=== PATIENT | female | born 1995 | race Caucasian/White ===

== ENCOUNTER 2017-09-25 12:53 | Outpatient (CLI) ==
[2015-09-19 09:30] VITALS: BMI 37.2
== END 2017-09-25 12:54 | disposition home or self-care (01) ==
LOC: LAB 12:53
PROVIDERS: ATTEND Advanced Practice Midwife
DX: R03.0 Elevated blood-pressure reading, without diagnosis of hypertension (principal)
CPT/HCPCS: 36415; 81050; 82575

== ENCOUNTER 2018-05-22 15:31 | Emergency (ER) | payer OTHER ==
[2018-05-22 15:35] VITALS: BP 121/78; TEMP 98.5; BMI 46.9
[2018-05-22] MEDS ORDERED: MOTRIN PO STA (16:00)
--- NOTE | 2018-05-22 16:01 | ED.PDOC ---
General ED Provider: Dr. JYOTI MIRANDA Chief Complaint: Ankle Pain/Injury Stated Complaint: Right ankle swelling since yesterday. No sure if she over did it at her new place of work but declines any obvious injury Time Seen by Physician: 15:59 Mode of Arrival: Walk-In Information Source: Patient Primary Care Provider: RORY WARREN Nursing and Triage Documentation Reviewed and Agree: Yes Does patient meet sepsis criteria?: No System Inflammatory Response Syndrome: Not Applicable Sepsis Protocol: For patient's 13 years and over: Temp is 96.8 and below OR 101 and greater Pulse >90 BPM Resp >20/minute Acutely Altered Mental Status Are patient's symptoms suggestive of a new infection, such as: -Pneumonia -Skin, Soft Tissue -Endocarditis -UTI -Bone, Joint Infection -Implantable Device -Acute Abdominal Infection -Wound Infection -Meningitis -Blood Stream Catheter Infection -Unknown Musculoskeletal Complaint Exam - Ankle/Foot Complaint/Exam Location of Injury: Reports: Right Mechanism of Injury: Reports: No known trauma Onset/Duration: 2 days Symptoms Are: Reports: Still present Initial Severity: Mild Current Severity: Moderate Location: Reports: Diffuse Character: Reports: Aching, Throbbing Alleviating: Reports: Rest Aggravating: Reports: Movement, Weight bearing Able to Bear Weight: Yes Associated Signs and Symptoms: Reports: Swelling Gout Risk Factors: Reports: None Lower Extremity Findings: Present: Swelling, Tenderness, Limited range of motion Tenderness: Present: Lateral malleolus Limited Range of Motion: Present: Dorsiflexion, Plantarflexion Ankle/Foot Picture: 1 - tenderness and swelling Differential Diagnosis: Sprain, Strain Review of Systems - Review Of Systems Constitutional: Reports: No symptoms Eyes: Reports: No symptoms Ears, Nose, Mouth, Throat: Reports: No symptoms Respiratory: Reports: No symptoms Cardiac: Reports: No symptoms GI: Reports: No symptoms : Reports: No symptoms Musculoskeletal: Reports: Joint pain, Joint swelling Neurological: Reports: Anxiety All Other Systems: Reviewed and Negative Past Medical History - Past Medical History Previously Healthy: Yes Endocrine: Reports: None Cardiovascular: Reports: None Respiratory: Reports: None Hematological: Reports: None Gastrointestinal: Reports: None Genitourinary: Reports: None Neuro/Psych: Reports: None Musculoskeletal: Reports: None Cancer: Reports: None Last Menstrual Period: february--had child in december Other Pertinent Past Medical History: Obesity - Surgical History General Surgical History: Reports: - Family History Family History: Reports: Unknown - Social History Smoking Status: Current some day smoker, Light tobacco smoker Hx Substance Use: No Alcohol Screening: None Physical Exam - Physical Exam Appearance: Well-appearing, Obese Pain Distress: Moderate Neck: Supple Respiratory: Airway patent, Breath sounds clear, Breath sounds equal, Respirations nonlabored Cardiovascular: RRR, Pulses normal, No murmur GI/: Soft, Nontender, No masses, Bowel sounds normal, No Organomegaly Musculoskeletal: Limited ROM (Right ankle joint ), Edema (right ankle ) Skin: Warm, Dry, Normal color Neurological: Sensation intact, Motor intact, Reflexes intact, Cranial nerves intact, Alert, Oriented Psychiatric: Anxious Interpretation - Radiology Interpretation Radiology Interpretation By: ED Physician Radiology Results: Negative Exam Interpreted: Other (Ankle x ray ) Critical Care Note - Critical Care Note Total Time (mins): 0 Course - Course Vital Signs: Temp Pulse Resp BP Pulse Ox 05/22/18 15:31 98.5 F 97 H 20 121/78 99 Departure - Departure Time of Disposition: 16:30 Disposition: HOME SELF-CARE Discharge Problem: Moderate right ankle sprain Qualifiers: Encounter type: initial encounter Qualified Code(s): S93.401A - Sprain of unspecified ligament of right ankle, initial encounter Instructions: Ankle Sprain (ED) Condition: Stable Pt referred to PMD for follow-up: Yes IPMP verified?: No Additional Instructions: Take Medications as prescribed Follow up with PCP in 3 day Keep foot elevated Use darlene wrap as needed for pain Prescriptions: Ibuprofen [Motrin] 600 mg PO Q6H PRN #30 tablet PRN Reason: Analgesia Tramadol HCl [Ultram] 50 mg PO Q6H PRN #10 tablet PRN Reason: Severe Pain Allergies/Adverse Reactions: Allergies No Known Drug Allergies Adverse Reaction (Verified 05/22/18 15:36) Home Medications: Ambulatory Orders Ibuprofen [Motrin] 600 mg PO Q6H PRN #30 tablet 05/22/18 Tramadol HCl [Ultram] 50 mg PO Q6H PRN #10 tablet 05/22/18 Disposition Discussed With: Patient
--- NOTE | 2018-05-22 16:17 | DI ---
EXAM: RIGHT ANKLE THREE VIEWS HISTORY: Ankle pain FINDINGS: Bone and joint structures appear normal. No fracture or joint dislocation. There is no joint effusion. Bone density is unremarkable. IMPRESSION: Bone and joint structures are within normal limits.
== END 2018-05-22 16:30 | disposition home or self-care (01) ==
LOC: ED 15:31
DX: S93.401A Sprain of unspecified ligament of right ankle, initial encounter (principal); X50.1XXA Overexertion from prolonged static or awkward postures, initial encounter; F17.210 Nicotine dependence, cigarettes, uncomplicated
CPT/HCPCS: 99282

== ENCOUNTER 2018-11-03 13:00 | Outpatient (RCR) ==
--- NOTE | 2018-10-20 10:49 | RS.OPPTEV2 ---
Date of Note: 10/20/18 Visit #: 1 Number of visits approved by Insurance: pending approval Date of Evaluation: 10/20/18 Payer Source: Medicaid Surgery Performed?: No Treatment Diagnosis: R ankle pain, tendonitis r ankle, sprain of anterior talofibular ligament History of Condition/Mechanism of Injury:: Pain began in 05/2018. No definite injury noted, just began hurting and swelling. Has been seeing blueprinting machine operator due to pain. 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 Functional Limitations: Standing, Squatting, Ambulation, Community Access/ Integration Current Subjective/complaints:: pt states that when she gets off work her foot hurts so bad she is unable to perform normal household activities. States the swelling in R lat ankle never goes away. Reports she did buy some new [employer] shoes and they help her make it through the work day. States MD gave her a lace up brace but she doesn't use it often because she doesn't think it helps. Treatment Side (optional): Right *Precautions: n/a Medical History Medical History: Unremarkable Surgical History: (x2) Smoking Status: Current some day smoker Hx Home Medications: ibuprofen Patient's Goals: decrease pain and swelling in R ankle, so she can play with her kids and do normal housework after she gets off work Pain Assessment - Pain Description Pain Location: R ankle Pain Description: Sharp, Aching Current Pain Intensity: 4 Worst Pain Intensity: 9 Functional Outcome Measure LE Functional Scale: 47 - G Codes & Severity Modifier G Codes & Modifier: n/a Source of G Code score: n/a Observation - Observation Inspection: area of edema posterior lateral malleolus Posture: Forward Head, Rounded Shoulders Handedness: Right Girth Measurement Lower: RLE: ankle 29.5cm, forefoot 25cm. LLE: ankle 26cm, forefoot 24.5cm Gait - Gait Pattern General Gait Pattern Observation: Antalgic Gait Gait Comments: pt amb with antalgic gait pattern without AD. pt with B foot pronation R worse than L. General Range of Motion: BUE WFL's. BLE hip and knee and L ankle WFL's Muscle Strength: BUE 5/5. BLE hip/knee and L ankle 5/5 Ankle ROM: Left WFL's Ankle Muscle Strength: Left WFL's - Right Ankle ROM Right DF with Knee extension: -5 Right Plantarflexion: 28 Right Eversion: 11 Right Inversion: 8 Right Ankle/Foot ROM Limitations: Soft Tissue Tightness, Muscle Weakness, Pain - Right Ankle Strength Right Dorsiflexion: 4- Good- Right Plantarflexion: 4- Good- Right Eversion: 4- Good- Right Inversion: 4- Good- - Special Tests Talar Tilt Test: Negative Right Palpation Palpation Findings: Tenderness Comments:: pt with point tenderness posterior lat malleolus as well as post to medial malleolus Sensation - Sensation Right Upper Extremity: Intact/Normal Left Upper Extremity: Intact/Normal Right Lower Extremity: Intact/Normal Left Lower Extremity: Intact/Normal Balance - Sitting Balance Static Sitting Balance: Normal Dynamic Sitting Balance: Normal - Standing Balance Static Standing Balance: Normal Dynamic Standing Balance: Normal - Treatment Modality: Ultrasound Parameters/Method Applied: 1.5w/cm2 x 7 mins Treatment Area: R lat ankle Patient Position: Sitting - Heat/Cryotherapy Treatment: Cryotherapy Comments:: R ankle Interventions - Exercise/Activities/Manual Therapy Exercises/Activities: pt received gentle heel cord stretch RLE, isometric DF, PF , IV, EV. Manual Therapy: pt received retrograde massage R foot/ankle, educated pt on self massage technique to decrease swelling. HOME EXERCISE PROGRAM: pt given written HEP including: towel stretch, isometric DF, PF, IV, EV. Instructed pt to perform towel stretches in morning before getting out of bed, also instructed on the importance of ice to decrease pain and edema. pt verbalized understanding - Charges Timed Code Treatment Minutes: 51 Total Treatment Time: 68 Procedures billed for this date of service:: eval low, ultrasound, ex EVALUATION COMPLEXITY LEVEL EVALUATION COMPLEXITY LEVEL: HISTORY: Low (R ankle pain), EXAM OF BODY SYSTEMS: Medium (edema, pain, strength, gait difficulty), CLINICAL PRESENTATION: Low, CLINICAL DECISION MAKING: Low Assessment Assessment: pt presents with pain, edema, decreased strength and ROM R ankle. pt with antalgic gait due to R ankle pain and heel cord tightness. Feel pt would benefit from skilled PT for therex for stretching, strengthening, modalities, massage to decrease edema and pain. Patient Education: Home Exercise Program, Education of Plan of Care Rehab Potential: Good Short Term Goals Goal #1: pt independent with initial HEP Goal to be met by: 11/12/18 Goal #2: Improve R ankle ROM WFL's Goal to be met by: 11/12/18 Goal #3: Improve R ankle strength 4 to 4+/5 Goal to be met by: 11/12/18 Goal #4: Decrease edema R ankle Goal to be met by: 11/12/18 Detention Goals Goal #1: pt amb with decreased antalgic gait pattern Goal to be met by: 12/03/18 Goal #2: pt report pain < 4/10 R ankle Goal to be met by: 12/03/18 Goal #3: pt report able to work full shift without increase in pain R ankle Goal to be met by: 12/03/18 Plan - Treatment to be Provided Procedures: Therapeutic Exercises, Manual Therapy, Massage, Patient Education Modalities: Electrical Stimulation, Ultrasound/Phonophoresis, Cryotherapy, Hot Packs Other:: feel pt may benefit from phonophoresis - Treatment Plan Frequency: 2-3x a week Duration: 6 weeks Dates of Snack Stewardess Goals: 12/03/18 Expiration date of current Insurance Approval:: pending - Treatment Code (1) Right ankle pain Code(s): M25.571 - PAIN IN RIGHT ANKLE AND JOINTS OF RIGHT FOOT Qualifiers: Chronicity: chronic Qualified Code(s): M25.571 - Pain in right ankle and joints of right foot; G89.29 - Other chronic pain (2) Effusion of ankle joint, right Code(s): M25.471 - EFFUSION, RIGHT ANKLE (3) Muscle tightness Code(s): M62.89 - OTHER SPECIFIED DISORDERS OF MUSCLE (4) Sprain of anterior talofibular ligament of right ankle Code(s): S93.491A - SPRAIN OF OTHER LIGAMENT OF RIGHT ANKLE, INITIAL ENCOUNTER
--- NOTE | 2018-10-26 16:23 | RS.OPPTDN ---
Subjective Date of Note: 10/26/18 Visit #: 2 Number of visits approved by Insurance: pending, requested 8 Date of Evaluation: 10/20/18 Payer Source: Medicaid Treatment Diagnosis: R ankle pain, tendonitis r ankle, sprain of anterior talofibular ligament Current Subjective/complaints:: Patient says she had to work today and has been limping throughout her shift at work. She says even her L ankle is affected as it is painful and swollen too. She says she can not turn her ankle "to normal" or neutral position. She says she has been trying to work on exercises at home and wear her tennis shoes. States she is going to try to fill her old prescription of anti-inflammatory medication to help with her symptoms. *Precautions: n/a - Treatment Modality: Ultrasound Parameters/Method Applied: PHONOPHORESIS using hydrocortisone 2.5% continuous @ 1.5 w/cm2 x 6 mins, then Pulsed 20% at 0.6 w/cm2 x 5 mins 3.3 mHz to the R lateral malleoli - Heat/Cryotherapy Treatment: Cryotherapy (cold pack wrapped around the R ankle/foot x 15 mins after therex) Interventions - Exercise/Activities/Manual Therapy Exercises/Activities: pt received gentle heel cord stretch RLE, HS stretching, isometric DF, PF, IV, EV. Total minutes of Exercise: 16 Manual Therapy: na HOME EXERCISE PROGRAM: pt given written HEP including: towel stretch, isometric DF, PF, IV, EV. Instructed pt to perform towel stretches in morning before getting out of bed, also instructed on the importance of ice to decrease pain and edema. pt verbalized understanding - Charges Timed Code Treatment Minutes: 28 Total Treatment Time: 43 Procedures billed for this date of service:: cp, u/s, ex Assessment: Patient demo moderate swelling to the R ankle as well as decreased ROM limiting her from IV and actually unable to obtain just neutral position. She amb in dept with decreased stance on the R LE, limping, and holding onto the gloria railing. We modified treatment to include hydrocortisone to u/s to further decrease her pain. She admits improved pain and mobility following treatment including cryotherapy. Patient Education: Education of diagnosis, Body/Joint mechanics, Home Exercise Program, Education of Plan of Care Patient demonstrates compliance with HEP?: Yes Short Term Goals Goal #1: pt independent with initial HEP Goal to be met by: 11/12/18 Progress towards Goal:: Progressing Goal #2: Improve R ankle ROM WFL's Goal to be met by: 11/12/18 Goal #3: Improve R ankle strength 4 to 4+/5 Goal to be met by: 11/12/18 Goal #4: Decrease edema R ankle Goal to be met by: 11/12/18 Automatic Oven Operator Goals Goal #1: pt amb with decreased antalgic gait pattern Goal to be met by: 12/03/18 Goal #2: pt report pain < 4/10 R ankle Goal to be met by: 12/03/18 Goal #3: pt report able to work full shift without increase in pain R ankle Goal to be met by: 12/03/18 Plan Dates of Automatic Oven Operator Goals: 12/03/18 Expiration date of current Insurance Approval:: 12/03/18 PLAN: Patient to continue with phonophoresis and cryotherapy and therex to increase ROM.
--- NOTE | 2018-10-28 16:12 | RS.CXNS ---
Date of scheduled appointment: 10/28/18 Type: No Show
--- NOTE | 2018-11-08 16:11 | RS.CXNS ---
Date of scheduled appointment: 11/08/18 Type: No Show Reason for Cancel/NS: patient calls 30 mins later
== END 2018-11-09 23:59 ==
PROVIDERS: ATTEND Podiatrist
DX: S93.491D Sprain of other ligament of right ankle, subsequent encounter (principal); M25.571 Pain in right ankle and joints of right foot; G89.29 Other chronic pain; M25.471 Effusion, right ankle; M62.89 Other specified disorders of muscle

== ENCOUNTER 2018-12-03 11:00 | Outpatient (RCR) ==
--- NOTE | 2018-11-11 14:08 | RS.CXNS ---
Date of scheduled appointment: 11/11/18 Type: Cancel Reason for Cancel/NS: pt had to cancel and reshedule for next week. pt states her dtr is sick today and she is going to take her to MD and they could only see her at 3. Rescheduled for 11/16/18 at 3pm.
--- NOTE | 2018-11-11 14:26 | RS.CXNS ---
Date of scheduled appointment: 11/11/18 Type: Rescheduled Reason for Cancel/NS: Taking daughter to MD.
--- NOTE | 2018-11-16 16:40 | RS.OPPTDN ---
Subjective Date of Note: 11/16/18 Visit #: 4 Number of visits approved by Insurance: 8 Date of Evaluation: 10/20/18 Payer Source: Medicaid Treatment Diagnosis: R ankle pain, tendonitis r ankle, sprain of anterior talofibular ligament Current Subjective/complaints:: Patient states her ankle pain has been bad the past few days. Reports increased swelling and difficulty with ambulation making her call into work today and yesterday. States her L ankle is now bothering her more than R. *Precautions: n/a - Treatment Modality: Ultrasound Parameters/Method Applied: PHONOPHORESIS using 2.5 % hydrocortisone continuous @ 1.5 w/cm2 x 5 mins then pulsed 20% 0.6 w/cm2 x 6 mins to the R lateral malleoli aspect Patient Position: Supine - Heat/Cryotherapy Treatment: Cryotherapy (15 mins to the R ankle following therex in supine) Interventions - Exercise/Activities/Manual Therapy Exercises/Activities: Patient receives PROM all directions of the R ankle followed by manual isometrics 2x5 all directions, red tband all directions 2x10 reps. Ended with wobble board DF/PF x 15 slowly after ice. Discussion of therex, diagnosis, anatomy, and HEP. Total minutes of Exercise: 22 Manual Therapy: na HOME EXERCISE PROGRAM: pt given written HEP including: towel stretch, isometric DF, PF, IV, EV. Instructed pt to perform towel stretches in morning before getting out of bed, also instructed on the importance of ice to decrease pain and edema. pt verbalized understanding - Charges Timed Code Treatment Minutes: 33 Total Treatment Time: 48 Procedures billed for this date of service:: cp, u/s, ex Assessment: Patient tolerates increased PROM today and demo less swelling, but patient had taken off 2 days because of her pain from over the weekend. Jennifer now is having more pain to the L foot than R. She experiences relief following session today and attentive to HEP, cryotherapy, and elevation. Patient Education: Education of diagnosis, Body/Joint mechanics, Home Exercise Program Patient demonstrates compliance with HEP?: Yes Short Term Goals Goal #1: pt independent with initial HEP Goal to be met by: 11/12/18 Progress towards Goal:: Progressing Goal #2: Improve R ankle ROM WFL's Goal to be met by: 11/12/18 Progress towards Goal:: Progressing Goal #3: Improve R ankle strength 4 to 4+/5 Goal to be met by: 11/12/18 Progress towards Goal:: Progressing Goal #4: Decrease edema R ankle Goal to be met by: 11/12/18 Progress towards Goal:: Progressing Manuscript Editor Goals Goal #1: pt amb with decreased antalgic gait pattern Goal to be met by: 12/03/18 Goal #2: pt report pain < 4/10 R ankle Goal to be met by: 12/03/18 Goal #3: pt report able to work full shift without increase in pain R ankle Goal to be met by: 12/03/18 Plan Dates of Manuscript Editor Goals: 12/03/18 Expiration date of current Insurance Approval:: 12/03/18 PLAN: Patient to continue BIW for phonophoresis and ROM/cryo to improve ROM and strength/pain.
--- NOTE | 2018-11-19 16:36 | RS.OPPTDN ---
Subjective Date of Note: 11/19/18 Visit #: 5 Number of visits approved by Insurance: pending, requested 8 Date of Evaluation: 10/20/18 Payer Source: Medicaid Treatment Diagnosis: R ankle pain, tendonitis r ankle, sprain of anterior talofibular ligament Current Subjective/complaints:: Patient says since she has had 4 days off from work to rest and taking ibuprofen prescription, she has had less pain and notices improved mobility. She says she had to work an earlier and longer shift today, but did not have the pain or swelling she anticipated. She appears positive about her progress. 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 *Precautions: n/a - Treatment Modality: Ultrasound Parameters/Method Applied: PHONOPHORESIS using 2.5 % hydrocortisone to the R lateral malleoli and just posterior/inferior continuous @ 1.5 w/cm2 x 5 mins, then pulsed @ 20% @ 0.6 w/cm2 x 5 mins Patient Position: Supine Interventions - Exercise/Activities/Manual Therapy Exercises/Activities: Patient receives PROM all directions of the R ankle followed by manual isometrics 2x5 all directions, progressed to green tband all directions 2x10 reps. Ended with wobble board DF/PF x 15 and then assisted slightly with IV/EV. Discussion of therex, diagnosis, anatomy, and HEP. Total minutes of Exercise: 17 Manual Therapy: na HOME EXERCISE PROGRAM: pt given written HEP including: towel stretch, isometric DF, PF, IV, EV. Instructed pt to perform towel stretches in morning before getting out of bed, also instructed on the importance of ice to decrease pain and edema. pt verbalized understanding - Charges Timed Code Treatment Minutes: 30 Total Treatment Time: 35 Procedures billed for this date of service:: u/s, ex Assessment: Patient presents with nearly equal stance time on the R LE with ambulation as well as very little pain after working a longer shift and first shift in 4 days. She demo improved IV to 12 degrees, DF now to neutral. Improved tolerance to isometrics and theraband today as well. Patient Education: Education of diagnosis, Home Exercise Program, Education of Plan of Care Patient demonstrates compliance with HEP?: Yes Short Term Goals Goal #1: pt independent with initial HEP Goal to be met by: 11/12/18 Progress towards Goal:: Progressing Goal #2: Improve R ankle ROM WFL's Goal to be met by: 11/12/18 Progress towards Goal:: Progressing Goal #3: Improve R ankle strength 4 to 4+/5 Goal to be met by: 11/12/18 Progress towards Goal:: Progressing Goal #4: Decrease edema R ankle Goal to be met by: 11/12/18 Progress towards Goal:: Partially Met (ongoing) Care Home Goals Goal #1: pt amb with decreased antalgic gait pattern Goal to be met by: 12/03/18 Goal #2: pt report pain < 4/10 R ankle Goal to be met by: 12/03/18 Goal #3: pt report able to work full shift without increase in pain R ankle Goal to be met by: 12/03/18 Plan Dates of Ad Operations Coordinator Goals: 12/03/18 Expiration date of current Insurance Approval:: 12/03/18 PLAN: Continue BIW x 2 more weeks to maintain little to no swelling to the R ankle and improve strength and ROM.
--- NOTE | 2018-11-23 16:23 | RS.OPPTDN ---
Subjective Date of Note: 11/23/18 Visit #: 6 Number of visits approved by Insurance: Requested 8 Date of Evaluation: 10/20/18 Payer Source: Medicaid Treatment Diagnosis: R ankle pain, tendonitis r ankle, sprain of anterior talofibular ligament Current Subjective/complaints:: Patient states she worked more today and went in earlier causing increased pain. She says her swelling seems to be controlled , but says she can't move her foot very much. States both feet really are bothering her. *Precautions: n/a - Treatment Modality: Electrical Stim Unattended Parameters/Method Applied: hivolt 4 small pads surrounding the R ankle x 20 mins prior to therex @ 155-180 pk volts Patient Position: Supine - Heat/Cryotherapy Treatment: Cryotherapy Comments:: around the R ankle with estim Interventions - Exercise/Activities/Manual Therapy Exercises/Activities: Patient receives PROM all directions of the R ankle cycling with isometrics and contract/relax to improve ROM. Focused on IV as it is very restricted. Continued with more isometrics all directions. Ended with AROM all directions. Encouraged ice and elevation, AROM tonight and tomorrow as she is off work. Total minutes of Exercise: 23 Manual Therapy: na HOME EXERCISE PROGRAM: pt given written HEP including: towel stretch, isometric DF, PF, IV, EV. Instructed pt to perform towel stretches in morning before getting out of bed, also instructed on the importance of ice to decrease pain and edema. pt verbalized understanding - Charges Timed Code Treatment Minutes: 23 Total Treatment Time: 43 Procedures billed for this date of service:: cp, estim (un), ex2 Assessment: Patient amb to dept with antalgic gait very limited PF and IV. ROM improved with contract/relax and estim. She appeared to jammie modalities well. She amb out of dept better, but decreased stride and stance time bilaterally. Patient Education: Home Exercise Program, Home Safety, Education of Plan of Care Patient demonstrates compliance with HEP?: Yes Short Term Goals Goal #1: pt independent with initial HEP Goal to be met by: 11/12/18 Progress towards Goal:: Progressing Goal #2: Improve R ankle ROM WFL's Goal to be met by: 11/12/18 Progress towards Goal:: Progressing Goal #3: Improve R ankle strength 4 to 4+/5 Goal to be met by: 11/12/18 Progress towards Goal:: Progressing Goal #4: Decrease edema R ankle Goal to be met by: 11/12/18 Progress towards Goal:: Partially Met (ongoing) School Transportation Director Goals Goal #1: pt amb with decreased antalgic gait pattern Goal to be met by: 12/03/18 Goal #2: pt report pain < 4/10 R ankle Goal to be met by: 12/03/18 Goal #3: pt report able to work full shift without increase in pain R ankle Goal to be met by: 12/03/18 Plan Dates of School Transportation Director Goals: 12/03/18 Expiration date of current Insurance Approval:: 12/03/18 PLAN: Continue x 2 more sessions.
--- NOTE | 2018-11-26 16:42 | RS.OPPTDN ---
Subjective Date of Note: 11/26/18 Visit #: 7 Number of visits approved by Insurance: 8 requested Date of Evaluation: 10/20/18 Payer Source: Medicaid Treatment Diagnosis: R ankle pain, tendonitis r ankle, sprain of anterior talofibular ligament Current Subjective/complaints:: Patient says she is wanting to get an order for therapy to work on the L ankle now. She says it seems to be worse than the R at this point. She says the R still hurts, but is now tolerable. She says she will return to her MD next week. *Precautions: n/a Pain Assessment - Pain Description Pain Location: Bilateral ankles along the medial and lateral aspect (L >R today) - Treatment Modality: Electrical Stim Unattended Parameters/Method Applied: hivolt 4 small pads surrounding the R ankle @ 165- 180 pk volts x 20 mins PRIOR to therex Patient Position: Supine - Heat/Cryotherapy Treatment: Cryotherapy (wrapped around the R ankle with estim) Interventions - Exercise/Activities/Manual Therapy Exercises/Activities: Patient receives PROM all directions of the R ankle cycling with isometrics and contract/relax to improve ROM. Focused on IV as it is very restricted and was able to maintain neutral position at rest. Continued with more isometrics all directions. Red tband for DF, PF, and IV 2x10. Ended with AROM all directions. Encouraged ice and elevation, AROM tonight and through the weekend. Total minutes of Exercise: 24 Manual Therapy: na HOME EXERCISE PROGRAM: pt given written HEP including: towel stretch, isometric DF, PF, IV, EV. Instructed pt to perform towel stretches in morning before getting out of bed, also instructed on the importance of ice to decrease pain and edema. pt verbalized understanding - Objective Findings Observations,measurements,etc.: IV actively is 13 degrees at end of session. She is able to maintain resting neutral position now as all other treatments she rested in [employer]. Passively, I am able to measure 15 degrees before pain is present. - Charges Timed Code Treatment Minutes: 24 Total Treatment Time: 44 Procedures billed for this date of service:: cp,estim (un), ex2 Assessment: Patient amb into dept with antalgic gait everting the R ankle, through modalities and therex, she is able to maintain resting ankle neutral position and noticably less antalgic gait. Increased heel to toe maintaining less eversion. Increased IV noted compared to eval. 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
--- NOTE | 2018-12-01 10:33 | RS.OPPTDN ---
Subjective Date of Note: 12/01/18 Visit #: 8 Number of visits approved by Insurance: Requested 18 Date of Evaluation: 10/20/18 Payer Source: Medicaid Treatment Diagnosis: R ankle pain, tendonitis r ankle, sprain of anterior talofibular ligament Current Subjective/complaints:: Patient says that she has stiffness and soreness to both ankles. Reports it is difficult for her to walk around first thing in the morning, but as she walks on it, it improves. She says therapy has helped her more in the past few visits as she is now able to turn her foot in and has less swelling. She says she is now having more issues with the L foot she feels due to "babying" the R foot. *Precautions: n/a - Treatment Modality: Electrical Stim Unattended Parameters/Method Applied: hivolt 4 small pads @ 165-185 pk volts x 20 mins after therex surrounding the R ankle Patient Position: Supine - Heat/Cryotherapy Treatment: Cryotherapy Interventions - Exercise/Activities/Manual Therapy Exercises/Activities: Patient receives PROM all directions of the R ankle cycling with isometrics and contract/relax to improve ROM. Focused on IV as it remains restricted, but is improving with mobility. She is now able to maintain neutral position while resting supine and also demo it in standing. Continued with joint mobs I-III at the talofibular joint for increasing range as well. AROM all directions. Continued with more isometrics all directions. Red tband for DF, PF, and IV 2x10. Patient stands at railing for instruction and performance of heel strike and toe off multiple reps to establish better gait pattern. Short range minisquats also at the railing x 5 to gain stabilization for the ankles. Encouraged ice and elevation. Total minutes of Exercise: 24 Manual Therapy: na HOME EXERCISE PROGRAM: pt given written HEP including: towel stretch, isometric DF, PF, IV, EV. Instructed pt to perform towel stretches in morning before getting out of bed, also instructed on the importance of ice to decrease pain and edema. pt verbalized understanding - Charges Timed Code Treatment Minutes: 24 Total Treatment Time: 44 Procedures billed for this date of service:: cp, ex2, estim (un) Assessment: Patient demo neutral position to the ankle with resting supine and also jammie less pain with active IV following modalities and manual mobilization techniques. She also demo improved strengthening to IV as well 4/5. She demo improved ease with heel strike and has correct demo during amb out of the dept. Very minimal swelling observed. Patient Education: Education of diagnosis, Home Exercise Program Patient demonstrates compliance with HEP?: Yes Short Term Goals Goal #1: pt independent with initial HEP Goal to be met by: 11/12/18 Progress towards Goal:: Met Goal #2: Improve R ankle ROM WFL's Goal to be met by: 11/12/18 Progress towards Goal:: Progressing Goal #3: Improve R ankle strength 4 to 4+/5 Goal to be met by: 11/12/18 Progress towards Goal:: Met Goal #4: Decrease edema R ankle Goal to be met by: 11/12/18 Progress towards Goal:: Partially Met (ongoing) Alf Goals Goal #1: pt amb with decreased antalgic gait pattern Goal to be met by: 12/03/18 Progress towards goal: Progressing Goal #2: pt report pain < 4/10 R ankle Goal to be met by: 12/03/18 Progress towards goal: Progressing Goal #3: pt report able to work full shift without increase in pain R ankle Goal to be met by: 12/03/18 Progress towards goal: Progressing Plan Dates of Lav Crewman Goals: 12/03/18 Expiration date of current Insurance Approval:: 12/03/18 PLAN: continue x 1 session
--- NOTE | 2018-12-03 15:32 | RS.OPPTDN ---
Subjective Date of Note: 12/03/18 Visit #: 9 Number of visits approved by Insurance: pending Date of Evaluation: 10/20/18 Payer Source: Medicaid Treatment Diagnosis: R ankle pain, tendonitis r ankle, sprain of anterior talofibular ligament Current Subjective/complaints:: Patient says that therapy has helped her tremendously for the R foot admitting that she is able to walk "correctly" on it and beginning to walk "wrong" on the L with increased pain. 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 She reports less swelling and more mobility. *Precautions: n/a - Treatment Modality: Electrical Stim Unattended Parameters/Method Applied: hivolt 4 small pads cross current to the R ankle @ 155-165 pk volts x 20 mins prior to therex/measurements. Patient Position: Supine - Heat/Cryotherapy Treatment: Cryotherapy Comments:: concurrent with estim Interventions - Exercise/Activities/Manual Therapy Exercises/Activities: Patient receives PROM all directions of the R ankle cycling with isometrics and contract/relax to improve ROM. Continued to provide focus to IV since it has been the most limited. Continued with joint mobs I-III at the talofibular joint for increasing range as well and joint distraction. AROM all directions. Continued with more isometrics all directions. Progressed to green tband for DF, PF, and IV 2x10. Instructed in green progressing to blue tband at home for above motions. Measurements taken , LE functional Index assessed, girth measurements, and advanced HEP. Total minutes of Exercise: 22 Manual Therapy: na HOME EXERCISE PROGRAM: pt given written HEP including: towel stretch, isometric DF, PF, IV, EV. Instructed pt to perform towel stretches in morning before getting out of bed, also instructed on the importance of ice to decrease pain and edema. pt verbalized understanding - Objective Findings Observations,measurements,etc.: Girth measurements to the R LE: ankle: 28 3/ 4cm (down by .75 cm), forefoot; 24.5 (down by 0.5 cm, which is equal to the L now). . MMT for DF/PF/IV/EV now measures 4+/5. ROM (Active): DF with knee extended--neutral, bent--+5 degrees. PF--31 degrees. EV--14 degrees. IV--13 degrees. LE Functional Index: 54/80 or 33% impairment (Eval 47/80 or 42% impairment) - Charges Timed Code Treatment Minutes: 30 Total Treatment Time: 50 Procedures billed for this date of service:: cp, estim (un), ex Assessment: Patient has completed 9 visits demo increased ROM, improved proper heel strike during ambulation allowing for increased stride length and WBing during stance using the R LE. Decreased swelling noted along with pain averaging 3/10 and ability to tolerate her shift at work much easier. She is now beginning to have difficulty due to compensation of the LLE admitting pain, swelling, and increased difficulty at work concerning the L ankle. She is now able to perform stretches, tband exercises at home and consciously performs proper heel strike for the R LE to improve her ambulation. These techniques are also applied by patient for the now more painful LE (L). Patient Education: Education of diagnosis, Body/Joint mechanics, Home Exercise Program, Home Safety, Activity Modification, Education of Plan of Care Patient demonstrates compliance with HEP?: Yes Short Term Goals Goal #1: pt independent with initial HEP Goal to be met by: 11/12/18 Progress towards Goal:: Met Goal #2: Improve R ankle ROM WFL's Goal to be met by: 11/12/18 Progress towards Goal:: Met Goal #3: Improve R ankle strength 4 to 4+/5 Goal to be met by: 11/12/18 Progress towards Goal:: Met Goal #4: Decrease edema R ankle Goal to be met by: 11/12/18 Progress towards Goal:: Partially Met (ongoing, has decreased to compare to the opposite LE for the forefoot) Shelter Goals Goal #1: pt amb with decreased antalgic gait pattern Goal to be met by: 12/03/18 Progress towards goal: Met Goal #2: pt report pain < 4/10 R ankle Goal to be met by: 12/03/18 Progress towards goal: Met Comments: avg 3/10 Goal #3: pt report able to work full shift without increase in pain R ankle Goal to be met by: 12/03/18 Progress towards goal: Met Comments: 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 Patient will be seeing her MD regarding the L ankle and possible MRI
== END 2018-12-10 23:59 ==
PROVIDERS: ATTEND Podiatrist
DX: S93.491S Sprain of other ligament of right ankle, sequela (principal); M25.571 Pain in right ankle and joints of right foot; G89.29 Other chronic pain; M62.89 Other specified disorders of muscle; M76.71 Peroneal tendinitis, right leg; M76.821 Posterior tibial tendinitis, right leg